=== PATIENT | female | born 1950 | race Caucasian/White ===

== ENCOUNTER 2017-05-31 20:21 | Emergency (ER) | payer BC, OTHER ==
--- NOTE | 2017-05-31 20:24 | PDOC ---
History of Present Illness - General History Source: Patient Exam Limitations: No Limitations - History of Present Illness Initial Comments: 05/31/17 21:03 The patient is a 66 year old female with past medical history of Hashimotos thyroiditis who presents to the ED with laceration to right middle finger which she sustained 40 minutes ago. The patient states she was baking in the kitchen and had a Cuisinart knife on the counter in which she knocked her hand into. She immediately washed the wound and applied pressure but got concerned when the bleeding persisted after a few minutes. She denies any numbness or tingling to the digit. The patient denies any history of poor wound healing, or multidrug resistant organisms. Her last tetanus shot was two years ago. She denies any fever, chills, nausea, vomiting, diarrhea, cough, SOB, CP, or urinary symptoms. She is right hand dominant. <Meliza Perez - Last Filed: 05/31/17 21:08> <Carla Kim - Last Filed: 06/01/17 01:02> - General Chief Complaint: Laceration Stated Complaint: RIGHT MIDDLE FINGER LACERATION Time Seen by Provider: 05/31/17 20:23 Past History <Meliza Perez - Last Filed: 05/31/17 21:08> - Past Medical History Anemia: No Asthma: No Cancer: No Cardiac Disorders: No CVA: No COPD: No CHF: No Dementia: No Diabetes: No GI Disorders: No Disorders: No HTN: No Hypercholesterolemia: No Liver Disease: No Seizures: No Thyroid Disease: Yes (HASHIMOTOS THYROIDITIS) - Surgical History Abdominal Surgery: No Appendectomy: No Cardiac Surgery: No Cholecystectomy: No Lung Surgery: No Neurologic Surgery: No Orthopedic Surgery: No - Suicide/Smoking/Psychosocial Hx Smoking History: Never smoked Have you smoked in the past 12 months: No Hx Alcohol Use: Yes (SOCIALLY) Drug/Substance Use Hx: No Substance Use Type: None Hx Substance Use Treatment: No <Carla Kim - Last Filed: 06/01/17 01:02> - Past Medical History Allergies/Adverse Reactions: Allergies Allergy/AdvReac Type Severity Reaction Status Date / Time Sulfa (Sulfonamide Allergy Severe Nausea Verified 05/31/17 20:29 Antibiotics) nitrofurantoin Allergy Intermediate Rash Verified 05/31/17 20:29 [From Macrobid] nitrofurantoin Allergy Intermediate Rash Verified 05/31/17 20:29 macrocrystalline [From Macrobid] Home Medications: Ambulatory Orders Acetaminophen [Tylenol .Extra-Strength -] 1,000 mg PO Q6H PRN 08/12/13 Docosahexanoic Acid/Epa [Fish Oil Concentrate Softgel] 2,000 mg PO DAILY Levothyroxine [Synthroid -] 75 mcg PO DAILY 08/12/13 Calcium Carbonate/Vitamin D3 [Calcium 600-Vit D3 500 Softgel] 1 each PO DAILY Cholecalciferol (Vitamin D3) [Vitamin D3 -] 2,000 unit PO DAILY 05/31/17 Review of Systems - Review of Systems Able to Perform ROS?: Yes Comments:: 05/31/17 21:03 CONSTITUTIONAL: Absent: fever, chills, diaphoresis, generalized weakness, malaise, loss of appetite HEENT: Absent: rhinorrhea, nasal congestion, throat pain, throat swelling, difficulty swallowing, mouth swelling, ear pain, eye pain, visual Changes CARDIOVASCULAR: Absent: chest pain, syncope, palpitations, irregular heart rate, lightheadedness , peripheral edema RESPIRATORY: Absent: cough, shortness of breath, dyspnea with exertion, orthopnea, wheezing, stridor, hemoptysis GASTROINTESTINAL: Absent: abdominal pain, abdominal distension, nausea, vomiting, diarrhea, constipation, melena, hematochezia GENITOURINARY: Absent: dysuria, frequency, urgency, hesitancy, hematuria, flank pain, genital pain MUSCULOSKELETAL: Absent: myalgia, arthralgia, joint swelling SKIN: Present: cut on right middle finger Absent: rash, itching, pallor HEMATOLOGIC/IMMUNOLOGIC: Absent: easy bleeding, easy bruising, lymphadenopathy, frequent infections ENDOCRINE: Absent: unexplained weight gain, unexplained weight loss, heat intolerance, cold intolerance NEUROLOGIC: Absent: headache, focal weakness or paresthesias, dizziness, unsteady gait, seizure, mental status changes, bladder or bowel incontinence PSYCHIATRIC: Absent: anxiety, depression, suicidal or homicidal ideation, hallucinations. All Other Systems: Reviewed and Negative <Meliza Perez - Last Filed: 05/31/17 21:08> *Physical Exam - Vital Signs Last Vital Signs Temp Pulse Resp BP Pulse Ox 98.2 F 58 L 15 108/62 100 05/31/17 20:23 10/21/17 20:23 05/31/17 20:23 05/31/17 20:23 05/31/17 20:23 - Physical Exam Comments: 05/31/17 21:04 GENERAL: The patient is awake, alert, and fully oriented, in no acute distress. HEAD: Normal with no signs of trauma. EYES: Pupils equal, round and reactive to light, extraocular movements intact, sclera anicteric, conjunctiva clear with no pallor. ENT: Ears normal, nares patent, oropharynx clear without exudates. Moist mucous membranes. NECK: Normal range of motion, supple without lymphadenopathy, JVD, or masses. LUNGS: Breath sounds equal, clear to auscultation bilaterally. No wheeze/ crackles. HEART: Regular rate and rhythm, normal S1 and S2 without murmur or rub. ABDOMEN: Soft/nontender/nondistended. BS wnl. No guarding or rebound. No palpable masses. No hepatosplenomegaly. EXTREMITIES: Present: 1.5 cm full thickness laceration over the dorsum of proximal R phalanx of middle finger Normal range of motion, no edema. No clubbing or cyanosis. No cords. NEUROLOGICAL: Cranial nerves II through XII grossly intact. Normal speech, normal gait. PSYCH: Normal mood, normal affect. SKIN: Warm, Dry, normal turgor, no rashes or lesions noted. <Meliza Perez - Last Filed: 05/31/17 21:08> Procedures - Laceration/Wound Repair Right Dorsal Finger 3rd digit Wound Length: to 2.5 cm Wound Explored: clean Wound's Depth, Shape: linear Irrigated w/ Saline: Yes Betadine Prep: No (Hibiclens/ethanol) Anesthesia: 1% Lidocaine Amount of Anesthetic (ccs): 2 Wound Repaired With: Sutures Suture Size/Type: 5:0 Number of Sutures: 4 Layer Closure: No Sterile Dressing Applied: Yes Splint Applied: No Sling Applied: No Progress: Area around the wound prepped using Hibiclens/ethanol and sterilely draped. 2 mL of 1% lidocaine infiltrated into the wound for local anesthesia. Wound irrigated using 40 mL of sterile saline. Wound base inspected: No evidence of tendon or vascular injury. Wound edges were closely approximated and wound closed using 4 interrupted sutures of 5-0 nylon. Bacitracin/gauze applied to wound followed by tube dressing. Patient tolerated procedure well. <Carla Kim - Last Filed: 06/01/17 01:02> Progress Note - Progress Note Progress Note: Documentation has been prepared under my direction and personally reviewed by me in its entirety. I attest that this documented accurately reflects all work, treatment, procedures and medical decision making performed by me. 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 No other injury sustained. Patient had persistent bleeding at home. She denies numbness/paresthesias and has no weakness of the finger. No history of poor wound healing/easy bleeding or persistent organism colonization/infection. Exam as noted. Wound repaired as per procedure note above. Patient discharged with instructions to keep areas dry as possible and covered for 2 days. After that, wound will be covered during the day when it may be retraumatized an open night. She should return or see her doctor if area appears infected. Sutures will be removed on Friday, June 06. <Carla Kim - Last Filed: 06/01/17 01:02> *DC/Admit/Observation/Transfer - Attestations Scribe Attestion: 05/31/17 21:05 Documentation prepared by Meliza Perez, acting as nuclear medical technologist for Carla Kim MD. <Meliza Perez - Last Filed: 05/31/17 21:08> <Carla Kim - Last Filed: 06/01/17 01:02> Diagnosis at time of Disposition: Laceration of middle finger of right hand without complication Qualifiers: Encounter type: initial encounter Qualified Code(s): S61.212A - Laceration without foreign body of right middle finger without damage to nail, initial encounter - Discharge Dispostion Disposition: HOME Condition at time of disposition: Stable - Referrals Referrals: Mary Brown MD [Primary Care Provider] - - Patient Instructions Printed Discharge Instructions: How to Care for a Laceration After Repair Additional Instructions: elevate right hand tonight keep original bandage intact, as dry as possible, for 48 hours after 48 hrs, bandaid with bacitracin during day/open at night no immersion until sutures out return or see your doctor if wound red/swollen/painful have sutures removed on Jun 06
[2017-05-31 20:28] VITALS: BP 108/62; PULSE 58; TEMP 98.2; BMI 21.0
== END 2017-05-31 21:09 | disposition home or self-care (01) ==
LOC: FER 20:21
PROC: 0HQFXZZ Repair Right Hand Skin, External Approach (ICD-10-PCS; principal; 2017-05-31)
DX: S61.212A Laceration without foreign body of right middle finger without damage to nail, initial encounter (principal); W26.0XXA Contact with knife, initial encounter; Y93.G3 Activity, cooking and baking; Y92.090 Kitchen in other non-institutional residence as the place of occurrence of the external cause; E06.3 Autoimmune thyroiditis
CPT/HCPCS: 99282-25